=== PATIENT | female | born 1960 | race Caucasian/White ===

== ENCOUNTER 2018-11-16 11:46 | Day surgery (SDC) | payer OTHER ==
[~2018-11-16 11:46] MED LIST: CEFAZOLIN 2 GM/50 ML (PMX) 50 ML IVPB
[2018-11-16] MEDS: GABAPENTIN 300 MG CAP PO (12:08)
[2018-11-16] MEDS: LACTATED RINGER'S 1,000 ML IV (12:08)
[2018-11-16] MEDS: DEXAMETHASONE 2 MG TAB PO (12:08)
[2018-11-16] MEDS ORDERED: PROPOFOL 20 ML (13:58)
[2018-11-16] MEDS ORDERED: SUCCINYLCHOLINE CHLORIDE 100 MG/5 ML SYG IV (13:58)
[2018-11-16] MEDS ORDERED: FENTAnyl 50 MCG/ML VIAL (13:58)
[2018-11-16] MEDS ORDERED: ROCURONIUM 50 MG INJ (13:58)
[2018-11-16] MEDS ORDERED: SEVOFLURANE 15 MIN (13:58)
[2018-11-16] MEDS ORDERED: MIDAZOLAM 1 MG/ML 2 ML INJ (13:58)
[2018-11-16] MEDS ORDERED: LIDOCAINE 2% (SDV) 5 ML INJ (13:58)
[2018-11-16] MEDS ORDERED: ROPIVACAINE 0.5 % 30 ML VIAL (13:59)
[2018-11-16] MEDS ORDERED: BUPIVACAINE 0.5%/EPI (SDV) 30 ML INJ (14:08)
[2018-11-16] MEDS: TRANEXAMIC ACID 1GM/100ML(PMX) 100 ML IVPB (14:50)
[2018-11-16] MEDS ORDERED: ONDANSETRON 4 MG INJ (15:12)
[2018-11-16] MEDS ORDERED: FAMOTIDINE 20 MG INJ (15:12)
[2018-11-16] MEDS ORDERED: DEXAMETHASONE 4 MG/ML 5 ML INJ (15:12)
[2018-11-16] MEDS ORDERED: HYDROmorphONE 2 MG/ML SYG (15:13)
[2018-11-16] MEDS: BUPIVACAINE 0.5% (SDV) 30 ML, morphine SULFATE (PF) 8 MG, EPINEPHrine 0.3 MG, KETOROLAC... IRR (15:31)
[2018-11-16] MEDS: TRANEXAMIC ACID 1GM/100ML(PMX) 200 ML (15:38)
[2018-11-16] MEDS ORDERED: GLYCOPYRROLATE 0.4 MG INJ (15:50)
[2018-11-16] MEDS ORDERED: NEOSTIGMINE 3 MG/3 ML SYRINGE (15:50)
[2018-11-16] MEDS ORDERED: FENTAnyl 50 MCG/ML VIAL IV (16:30)
[2018-11-16] MEDS ORDERED: OXYCODONE/ACETAMINOPHEN (5/325) TAB PO (16:30)
[2018-11-16] MEDS ORDERED: MEPERIDINE 25 MG INJ IV (16:30)
[2018-11-16] MEDS ORDERED: PROCHLORPERAZINE 10 MG INJ IV (16:30)
[2018-11-16] MEDS ORDERED: ONDANSETRON 4 MG INJ IV (16:30)
[2018-11-16] MEDS ORDERED: DIPHENHYDRAMINE 50 MG INJ IV (16:30)
[2018-11-16] MEDS ORDERED: HYDROmorphONE 1 MG/5 ML IV SYRINGE IV ×3 (16:30)
== END 2018-11-16 18:08 | disposition home or self-care (01) ==
LOC: SDS 11:46
DX: T84.84XA Pain due to internal orthopedic prosthetic devices, implants and grafts, initial encounter (principal); M75.52 Bursitis of left shoulder; F32.9 Major depressive disorder, single episode, unspecified; E66.9 Obesity, unspecified
CPT/HCPCS: 20680; 88300